=== PATIENT | female | born 1995 | race African-American/Black ===

== ENCOUNTER 2018-05-05 07:00 | Emergency (ER) | payer MEDICARE, OTHER ==
[~2018-05-05] VITALS: Ht 157.5 cm; Wt 83.0 kg
[2018-05-05 07:03] VITALS: BP 153/95; PULSE 108; RESP 16; Ht 157.5 cm; Wt 83.0 kg
--- NOTE | 2018-05-05 07:34 | ERD ---
ER Documentation Chief Complaint Chief Complaint back pain and dysuria x 1 week HPI Is a 23-year-old female who presents to the emergency room with complaint of right-sided flank pain and dysuria increasing in severity times 1 week. Patient states that she has had multiple UTIs over the last year, has not had urology follow-up. Denies fevers,+frequency, + burning, occasional vaginal itching. Patient states she has been having unprotected sex and has concern for STD. Patient states she is currently on her period. Significant medical history for bipolar disorder, depression. Patient states she has recently moved to the area and this is her first visit at this facility. Patient states that she has pain but it is manageable and declines any analgesic at this time. ROS All systems reviewed and are negative except as per history of present illness. Medications Home Meds Active Scripts Cephalexin* (Keflex*) 500 Mg Capsule, 500 MG PO BID for 10 Days, #20 CAP Prov:DAVID BRUCE NP 05/05/18 Phenazopyridine Hcl* (Pyridium*) 200 Mg Tab, 200 MG PO TID PRN for URINARY PAIN, #6 TAB Prov:DAVID BRUCE NP 05/05/18 Allergies Allergies: Coded Allergies: No Known Allergy (Unverified , 05/05/18) PMhx/Soc Medical and Surgical Hx: pt denies Medical Hx FmHx Family History: No diabetes, No coronary disease, No other Physical Exam Vitals Vital Signs Date Temp Pulse Resp B/P (MAP) Pulse Ox O2 O2 Flow FiO2 Time Delivery Rate 05/05/18 97.8 108 16 153/95 97 07:03 (114) Physical Exam General: alert and oriented x4, no acute distress HEENT: normocephalic, atraumatic, PERRL, tympanic membranes normal, no nasal discharge, neck nontender, without lymphadenopathy, pharynx nonerythematous Cardiovascular: regular rate and rhythm, normal peripheral perfusion Respiratory: lungs clear to auscultation and percussion, without rales, without rhonchi, without wheezing, normal breath sounds, respirations non labored, normal air movement in lung gallegos Gastrointestinal: abdomen soft, non-distended, no tenderness to palpation in the suprapubic area, no guarding, no rebound, no CVT Psychiatric: demonstrates good judgment and reason and normal affect during examination Results 24 hrs Laboratory Tests Test 05/05/18 07:29 Urine Color YELLOW Urine Clarity CLOUDY Urine pH 6.0 Urine Specific [place] 1.010 Urine Ketones NEGATIVE mg/dL Urine Nitrite NEGATIVE mg/dL Urine Bilirubin NEGATIVE mg/dL Urine Urobilinogen NEGATIVE mg/dL Urine Leukocyte Esterase 3+ Jose Luis/ul Urine Microscopic RBC 111 /HPF Urine Microscopic WBC > 182 /HPF Urine Squamous Epithelial Cells FEW /HPF Urine Bacteria FEW /HPF Urine Yeast (Budding) FEW /HPF Urine Hemoglobin 3+ mg/dL Urine Glucose NEGATIVE mg/dL Urine Total Protein 2+ mg/dl Urine Test NEGATIVE Current Medications Medications Dose Sig/Dimitri Start Time Status Last (Trade) Ordered Route PRN Stop Time Admin Dose Reason Admin Ceftriaxone 250 mg ONCE ONCE 05/05/18 DC 05/05/18 Sodium IM 08:30 08:39 (Rocephin) 05/05/18 08:31 Lidocaine 5 ml ONCE ONCE 05/05/18 DC 05/05/18 (Xylocaine INJ 08:30 08:39 1% (Mpf)) 05/05/18 08:31 1,000 mg ONCE ONCE 05/05/18 DC 05/05/18 Azithromycin PO 08:30 08:39 (Zithromax) 05/05/18 08:31 Procedures/MDM This is a 23-year-old female who presents with dysuria and right sided flank pain. Diagnostic tests show positive for UTI. Due to patient's report of complicated and frequent UTIs, urine was sent for culture to ensure appropriate treatment. NAAT exam for chlamydia and gonorrhea will not be available for 3-5 days. Patient was treated empirically here in the ER and instructed that she will be notified if results of urine culture reveal need for alternative treatment. There is low suspicion for pyelonephritis, vaginitis, STI, or interstitial cystitis due to absence of clinical findings that would support a diagnosis more serious than uncomplicated UTI. These diagnoses have been considered and excluded clinically. Nonetheless, it is understood by both the patient and provider that no clinical or diagnostic assessment can entirely exclude such diseases. Patient has been instructed on signs and symptoms of concern or with evolving condition with strict instructions to return to ED for reevaluation. Departure Diagnosis: Primary Impression: Urinary tract infection Condition: Stable Patient Instructions: Urinary Tract Infections in Women Referrals: [facility] Additional Instructions: Thank you very much for allowing us to participate in your care. Your health and safety is our top priority at [facility]. Call your primary care doctor TOMORROW for an appointment during the next 2-4 days and bring all the information and medications prescribed. Have prescriptions filled and follow precisely the directions on the label. If the symptoms get worse and your provider is unavailable, return to the Emergency Department immediately. DAVID BRUCE NP May 05, 2018 07:34
[2018-05-05] MEDS ORDERED: PHEN-538 PO (07:35)
[2018-05-05] MEDS ORDERED: CEPH-443 PO (08:20)
[2018-05-05] MEDS ORDERED: CEFTRIAXONE 250 MG INJ IM ONE (08:30)
[2018-05-05] MEDS ORDERED: AZITHROMYCIN 250 MG TAB PO ONE (08:30)
[2018-05-05] MEDS ORDERED: LIDOCAINE 1% (MPF) 5 ML VIAL INJ ONE (08:30)
== END 2018-05-05 09:48 | disposition left against medical advice (07) ==
LOC: FTE 07:00
DX: N39.0 Urinary tract infection, site not specified (principal)
CPT/HCPCS: 81001; 84703; 87086; 87591; 96372; 99284; J0696

== ENCOUNTER 2018-05-06 15:26 | Emergency (ER) | payer MEDICARE, OTHER ==
[~2018-05-06] VITALS: Wt 74.0 kg
[~2018-05-06 15:26] MED LIST: CEPH-443 PO; PHEN-538 PO
[2018-05-06 15:29] VITALS: BP 140/91; PULSE 100; RESP 20
--- NOTE | 2018-05-06 20:49 | ERD ---
ER Documentation Chief Complaint Chief Complaint ABD PAIN WITH NAUSEA AND VOMITING AND VAGINAL BLEEDING SINCE 1 DAY HPI 23-year-old female patient with a past medical history of anemia presents to the ED stating that she was concerned for blood clots in her vaginal bleeding. Reports that she started her menstruation about 3 days ago. She has had to change a few pads per day. Patient was here yesterday for dysuria and got treated for STD concern. Reports that she has had 3 episodes of nonbilious nonbloody vomiting. States that now she has some lower pelvic stabbing pain. She has had a previous history of a right breast lumpectomy. Denies any diarrhea, constipation, fever, chills, chest pain, shortness of breath. ROS All systems reviewed and are negative except as per history of present illness. Medications Home Meds Active Scripts Cephalexin* (Keflex*) 500 Mg Capsule, 500 MG PO BID for 10 Days, #20 CAP Prov:DAVID BRUCE NP 05/05/18 Phenazopyridine Hcl* (Pyridium*) 200 Mg Tab, 200 MG PO TID PRN for URINARY PAIN, #6 TAB Prov:DAVID BRUCE NP 05/05/18 Allergies Allergies: Coded Allergies: No Known Allergy (Unverified , 05/05/18) FmHx Family History: No diabetes, No coronary disease Physical Exam Vitals Vital Signs Date Temp Pulse Resp B/P (MAP) Pulse Ox O2 O2 Flow FiO2 Time Delivery Rate 05/06/18 98.8 100 20 140/91 98 15:29 (107) Physical Exam Const: [id number], well-nourished. In no acute distress. Head: Atraumatic, normocephalic Eyes: Normal Conjunctiva without injection. No purulent discharge. ENT: Normal external ear, nose. Moist oropharynx without tonsillar exudates. Non-erythematous pharynx. Uvula midline. No drooling. No trismus. Neck: No cervical midline tenderness. Full range of motion. No meningismus. No cervical lymphadenopathy. No JVD. Resp: Clear to auscultation bilaterally. No wheezing, rhonchi, rales, or crackles. No accessory muscle use. No retractions. Cardio: Regular rate and rhythm. No murmurs, rubs or gallops. Abd: Soft, suprapubic tenderness, non distended. Normal bowel sounds. No palpable masses. No rebound tenderness. No guarding. Negative McBurney's point. Negative psoas sign. Negative obturator sign.: See exam in MDM. Skin: No petechiae or rashes Back: No midline tenderness. No CVA tenderness. Ext: No cyanosis, or edema. Neur: Awake and alert. Normal gait. Normal coordination. Psych: Normal Mood and Affect Results 24 hrs Laboratory Tests Test 05/06/18 16:31 05/06/18 16:47 POC Beta HCG, Qualitative NEGATIVE Urine Color STRAW Urine Clarity SLIGHTLY CLOUDY Urine pH 8.0 Urine Specific [place] 1.004 Urine Ketones NEGATIVE mg/dL Urine Nitrite NEGATIVE mg/dL Urine Bilirubin NEGATIVE mg/dL Urine Urobilinogen NEGATIVE mg/dL Urine Leukocyte Esterase 3+ Jose Luis/ul Urine Microscopic RBC 6 /HPF Urine Microscopic WBC 115 /HPF Urine Bacteria FEW /HPF Urine Hemoglobin 3+ mg/dL Urine Glucose NEGATIVE mg/dL Urine Total Protein NEGATIVE mg/dl Procedures/MDM 23-year-old female patient with a past medical history of anemia presents to the ED complaining of lower abdominal pain associated with nausea and vomiting as well as vaginal bleeding that started earlier today - likely patient's menstruation. Patient is afebrile and nontoxic-appearing. Patient's blood pressure is 140/91. Blood Pressure Assessment: Patient's blood pressure was elevated (>120/80) but appears stable without evidence of hypertension emergency or urgency. The patient was counseled about the risks of hypertension and urged to pursue outpatient monitoring and therapy within a week with their primary care physician. Patient eloped prior to receiving ultrasound as well as blood work. Patient was called several times by our staff to obtain blood work as well as ultrasound. Low suspicion for ectopic , ovarian torsion, gastritis, GERD, peptic ulcer disease, cholecystitis, choledocholithiasis, cholangitis, pancreatitis, appendicitis, bowel obstruction, ileus, volvulus, nephrolithiasis, pyelonephritis, hepatitis, perforated viscus, diverticulitis, strangulated/incarcerated hernia, DKA, acute abdomen, mesenteric ischemia or other emergent conditions. Departure Diagnosis: Primary Impression: Vaginal bleeding Condition: Stable JOSE LOGAN PA-C May 06, 2018 20:49
== END 2018-05-06 20:13 | disposition left against medical advice (07) ==
LOC: FTE 15:26
DX: N93.9 Abnormal uterine and vaginal bleeding, unspecified (principal); R10.2 Pelvic and perineal pain
CPT/HCPCS: 81001; 81025; 99283

== ENCOUNTER 2018-05-09 08:34 | Emergency (ER) | payer MEDICARE, OTHER ==
[~2018-05-09] VITALS: Wt 90.0 kg
[2018-05-09 08:40] VITALS: BP 130/78; PULSE 99; RESP 18
[2018-05-09] MEDS ORDERED: NORE1TAB12 PO (11:03)
--- NOTE | 2018-05-09 12:51 | ERD ---
ER Documentation Chief Complaint Chief Complaint VAGINAL BLEEDING, LMP 45 DAYS AGO HPI 23-year-old female presenting with vaginal bleeding. She states that she has not had a period 45 days and does not know she is . She has been passing clots. She states is been going on for the last 3 days. She is unsure if she is . A0. Denies medical problems. NKDA. Surgical history left breast mass removal. Cryotherapy on cervix. ROS All systems reviewed and are negative except as per history of present illness. Medications Home Meds Active Scripts Noreth A-Et Estra/Fe Fumarate (LO LOESTRIN FE 1-10 TABLET) 1 Each Tablet, 1 EACH PO DAILY, #28 TAB Prov:ELENA GOMEZ PA-C 05/09/18 Cephalexin* (Keflex*) 500 Mg Capsule, 500 MG PO BID for 10 Days, #20 CAP Prov:DAVID BRUCE NP 05/05/18 Phenazopyridine Hcl* (Pyridium*) 200 Mg Tab, 200 MG PO TID PRN for URINARY PAIN, #6 TAB Prov:DAVID BRUCE NP 05/05/18 Allergies Allergies: Coded Allergies: No Known Allergy (Unverified , 05/05/18) PMhx/Soc History of Surgery: Yes (cervix frozen,left breast tumor removed) Anesthesia Reaction: No Hx Miscellaneous Medical Probl: Yes (Anemia) Hx Alcohol Use: Yes (beer a day) Hx Substance Use: Yes (marijuana,meth,cocaine,amphetamine a day ago) Hx Tobacco Use: Yes Smoking Status: Current every day smoker FmHx Family History: No diabetes, No coronary disease, No other Physical Exam Vitals Vital Signs Date Temp Pulse Resp B/P (MAP) Pulse Ox O2 O2 Flow FiO2 Time Delivery Rate 05/09/18 98.1 99 18 130/78 99 08:40 (95) Physical Exam GENERAL: The patient is well-appearing, well-nourished, in no acute distress CHEST: Clear to auscultation bilaterally. There are no rales, wheezes or rhonchi. HEART: Regular rate and rhythm. No murmurs, clicks, rubs or gallops. ABDOMEN:Soft, nontender and nondistended. Good bowel sounds. No rebound or guarding. No gross peritonitis. No gross organomegaly or masses. Result Diagram: 05/09/1890305/09/1804 Results 24 hrs Laboratory Tests Test 05/09/18 09:04 05/09/18 10:36 05/09/18 10:40 White Blood Count 8.2 10^3/ul Red Blood Count 4.61 10^6/ul Hemoglobin 12.1 g/dl Hematocrit 38.1 % Mean Corpuscular Volume 82.6 fl Mean Corpuscular Hemoglobin 26.2 pg Mean Corpuscular 31.8 g/dl Hemoglobin Concent Red Cell Distribution Width 17.1 % Platelet Count 353 10^3/UL Mean Platelet Volume 10.0 fl Immature Granulocytes % 0.200 % Neutrophils % 53.2 % Lymphocytes % 38.7 % Monocytes % 6.9 % Eosinophils % 0.5 % Basophils % 0.5 % Nucleated Red Blood Cells % 0.0 /100WBC Immature Granulocytes # 0.020 10^3/ul Neutrophils # 4.3 10^3/ul Lymphocytes # 3.2 10^3/ul Monocytes # 0.6 10^3/ul Eosinophils # 0.0 10^3/ul Basophils # 0.0 10^3/ul Nucleated Red Blood Cells # 0.0 10^3/ul Sodium Level 141 mmol/L Potassium Level 3.7 mmol/L Chloride Level 105 mmol/L Carbon Dioxide Level 27 mmol/L Anion Gap 9 Blood Urea Nitrogen 10 mg/dl Creatinine 0.78 mg/dl Est Glomerular Filtrat > 60 mL/min Rate mL/min Glucose Level 95 mg/dl Calcium Level 9.6 mg/dl Total Bilirubin 0.1 mg/dl Direct Bilirubin 0.00 mg/dl Indirect Bilirubin 0.1 mg/dl Aspartate Amino 35 IU/L Transf (AST/SGOT) Alanine 36 IU/L Aminotransferase (ALT/SGPT) Alkaline Phosphatase 111 IU/L Total Protein 8.3 g/dl Albumin 4.5 g/dl Globulin 3.80 g/dl Albumin/Globulin Ratio 1.18 Beta HCG, Quantitative < 2.4 mIU/ml Urine Color STRAW Urine Clarity CLEAR Urine pH 7.0 Urine Specific [place] 1.003 Urine Ketones NEGATIVE mg/dL Urine Nitrite NEGATIVE mg/dL Urine Bilirubin NEGATIVE mg/dL Urine Urobilinogen NEGATIVE mg/dL Urine Leukocyte Esterase NEGATIVE Jose Luis/ul Urine Microscopic RBC 11 /HPF Urine Microscopic WBC 7 /HPF Urine Squamous Epithelial Cells FEW /HPF Urine Hemoglobin 3+ mg/dL Urine Glucose NEGATIVE mg/dL Urine Total Protein NEGATIVE mg/dl Bedside Urine pH (LAB) 7.0 Bedside Urine Protein (LAB) Negative Bedside Urine Glucose (UA) Negative Bedside Urine Ketones (LAB) Negative Bedside Urine Blood 3+ Bedside Urine Nitrite (LAB) Negative Bedside Urine Leukocyte Esterase Trace (L Procedures/MDM DIAGNOSTIC IMAGING REPORT Patient: DANIELLE YEPEZ : 1995 Age: 23 Sex: F MR #: [id number] DOS: 05/09/18 0855 Ordering MD: ERI GOMEZ PA-C Location: [facility] Room/Bed: PROCEDURE: US Pelvis. CLINICAL INDICATION: vaginal bleeding TECHNIQUE: Multiple sonographic images of the pelvis were obtained utilizing a transabdominal and endovaginal technique. The images were reviewed on a PACS workstation. COMPARISON: None. FINDINGS: The uterus is normal in size and demonstrates a normal appearance of the myometrium. The uterus measures 6.9 x 3.0 x 3.7 cm in size. The endometrial stripe is homogeneous in appearance and has the thickness of 6 mm. No intrauterine gestation is noted. The ovaries are normal in size and echogenicity. Normal Doppler flow is identified in both ovaries. The right ovary measures 3.9 x 2.0 x 3.4 cm. The left ovary measures 3.8 x 2.1 x 2.6 cm. No free fluid is present within the pelvis.. RPTAT: AA IMPRESSION: No intrauterine gestation visualized. Differential diagnosis includes early , missed or ectopic . Follow-up ultrasound and HCG levels is recommended. MDM: 23-year-old female presenting with vaginal bleeding. Patient's hemoglobin is stable and I do not have concerns for anemia at this time. Patient's beta quant levels are less than 2.4. A low suspicion for pelvic emergency. I have low suspicion for other acute abdominal emergencies as patient's abdominal exam is non-concerning. Patient's vitals are stable. I have low suspicion for urinary tract infection. Patient urinalysis within normal limits. Patient is told if symptoms change or worsen to follow-up with primary care. She is discharged with strict ER precautions. All questions answered at discharge Departure Diagnosis: Primary Impression: Vaginal bleeding Condition: Stable Patient Instructions: Menorrhagia Referrals: [facility] YOU HAVE RECEIVED A MEDICAL SCREENING EXAM AND THE RESULTS INDICATE THAT YOU DO NOT HAVE A CONDITION THAT REQUIRES URGENT TREATMENT IN THE EMERGENCY DEPARTMENT. FURTHER EVALUATION AND TREATMENT OF YOUR CONDITION CAN WAIT UNTIL YOU ARE SEEN IN YOUR DOCTORS OFFICE WITHIN THE NEXT 1-2 DAYS. IT IS YOUR RESPONSIBILITY TO MAKE AN APPOINTMENT FOR FOLOW-UP CARE. IF YOU HAVE A PRIMARY DOCTOR --you should call your primary doctor and schedule an appointment IF YOU DO NOT HAVE A PRIMARY DOCTOR YOU CAN CALL OUR PHYSICIAN REFERRAL HOTLINE AT IF YOU CAN NOT AFFORD TO SEE A PHYSICIAN YOU CAN CHOSE FROM THE FOLLOWING [facility] [address] [place] [address] [facility] [facility] [address] [facility] [address] [facility]. [facility] [address] [facility]. [facility]. [address] Additional Instructions: FOLLOW UP WITH YOUR PRIMARY CARE PHYSICIAN TOMORROW.Return to this facility if you are not improving as expected. ELENA GOMEZ PA-C May 09, 2018 12:51
== END 2018-05-09 11:21 | disposition home or self-care (01) ==
LOC: FTE 08:34
DX: N93.9 Abnormal uterine and vaginal bleeding, unspecified (principal); F17.210 Nicotine dependence, cigarettes, uncomplicated; R10.2 Pelvic and perineal pain; Z32.02 Encounter for pregnancy test, result negative
CPT/HCPCS: 36415; 76801; 76817; 80053; 81001; 81003; 84702; 85025; 86900; 86901

== ENCOUNTER 2018-05-27 14:57 | Emergency (ER) | payer MEDICARE, OTHER ==
[~2018-05-27 14:57] MED LIST changes: +NORE1TAB12 PO
== END 2018-05-27 16:09 | disposition left against medical advice (07) ==
LOC: E/R 14:57
DX: Z53.21 Procedure and treatment not carried out due to patient leaving prior to being seen by health care provider (principal)

== ENCOUNTER 2018-07-01 04:08 | Emergency (ER) | payer MEDICARE, OTHER ==
[~2018-07-01] VITALS: Ht 157.5 cm; Wt 81.6 kg
[2018-07-01 04:11] VITALS: Ht 157.5 cm; Wt 81.6 kg
[2018-07-01] MEDS ORDERED: VENL225T PO (04:39)
[2018-07-01] MEDS ORDERED: ARIP400S IM (04:39)
[2018-07-01] MEDS ORDERED: OXCA300T3 PO (04:39)
--- NOTE | 2018-07-01 04:43 | ERD ---
ER Documentation Chief Complaint Chief Complaint states needs medication refill for psyche meds HPI 23-year-old female presents for medication refills. She currently takes 3 different psych medications for her bipolar disorder. She states that she just moved to the city and has not had a psychiatry follow-up. She currently takes Abilify 400 mg monthly IM, Trileptal 300 mg twice daily, venlafaxine 225 daily. She is been taking the IM Abilify for about 4 years. She currently denies any suicidal or homicidal ideation. She denies any hallucinations currently. No o ther modifying factors noted, no treatments tried at home. ROS All systems reviewed and are negative except as per history of present illness. Medications Home Meds Active Scripts Venlafaxine Hcl* (Venlafaxine Hcl ER*) 225 Mg Tab.er.24, 225 MG PO DAILY for depression, #30 TAB.SA Prov:SHWETA QUINTANILLA DO 07/01/18 Oxcarbazepine* (Trileptal*) 300 Mg Tablet, 300 MG PO BID for bipolar, #60 TAB Prov:SHWETA QUINTANILLA DO 07/01/18 Aripiprazole* (Abilify* Maintena) 400 Mg Suser.vial, 400 MG IM Q28D for bipolar disorder, #1 VIAL Prov:SHWETA QUINTANILLA DO 07/01/18 Noreth A-Et Estra/Fe Fumarate (LO LOESTRIN FE 1-10 TABLET) 1 Each Tablet, 1 EACH PO DAILY, #28 TAB Prov:ELENA GOMEZ PA-C 05/09/18 Cephalexin* (Keflex*) 500 Mg Capsule, 500 MG PO BID for 10 Days, #20 CAP Prov:DAVID BRUCE NP 05/05/18 Phenazopyridine Hcl* (Pyridium*) 200 Mg Tab, 200 MG PO TID PRN for URINARY PAIN, #6 TAB Prov:DAVID BRUCE NP 05/05/18 Allergies Allergies: Coded Allergies: No Known Allergy (Unverified , 05/05/18) PMhx/Soc History of Surgery: Yes (cervix frozen,left breast tumor removed) Anesthesia Reaction: No Hx Psychiatric Problems: Yes (DEPRESSION) Hx Miscellaneous Medical Probl: Yes (Anemia) Hx Alcohol Use: Yes (beer a day) Hx Substance Use: Yes (marijuana,meth,cocaine,amphetamine a day ago) Hx Tobacco Use: Yes Smoking Status: Current every day smoker FmHx Family History: No coronary disease Physical Exam Vitals Vital Signs Date Temp Pulse Resp B/P (MAP) Pulse Ox O2 O2 Flow FiO2 Time Delivery Rate 07/01/18 97.5 102 20 150/90 97 04:11 (110) Physical Exam Const: No acute distress Resp: Clear to auscultation bilaterally Cardio: Regular rate and rhythm, no murmurs Abd: Soft, non tender, non distended. Normal bowel sounds Skin: No petechiae or rashes Back: No midline or flank tenderness Ext: No cyanosis, or edema Neur: Awake and alert Psych: Normal Mood and Affect, denies SI or HI Procedures/MDM Medical Decision Making: Patient presents for refills on her psych medications. She states that she recently moved into the city and does not have psych follow-up. Patient appeared well on physical exam. Patient was able to produce documentation that she is on her psych meds. Patient given refills. Patient advised to follow up with PCP in 1-2 days. Patient advised to return to ED for new or worsening symptoms. Patient stable on discharge from the ED. Disclaimer: Inadvertent spelling and grammatical errors are likely due to EHR/dictation software use and do not reflect on the overall quality of patient care. Also, please note that the electronic time recorded on this note does not necessarily reflect the actual time of the patient encounter. Departure Diagnosis: Primary Impression: Encounter for medication refill Condition: Fair Patient Instructions: Taking Medicine Safely Referrals: [facility] YOU HAVE RECEIVED A MEDICAL SCREENING EXAM AND THE RESULTS INDICATE THAT YOU DO NOT HAVE A CONDITION THAT REQUIRES URGENT TREATMENT IN THE EMERGENCY DEPARTMENT. FURTHER EVALUATION AND TREATMENT OF YOUR CONDITION CAN WAIT UNTIL YOU ARE SEEN IN YOUR DOCTORS OFFICE WITHIN THE NEXT 1-2 DAYS. IT IS YOUR RESPONSIBILITY TO MAKE AN APPOINTMENT FOR FOLOW-UP CARE. IF YOU HAVE A PRIMARY DOCTOR --you should call your primary doctor and schedule an appointment IF YOU DO NOT HAVE A PRIMARY DOCTOR YOU CAN CALL OUR PHYSICIAN REFERRAL HOTLINE AT IF YOU CAN NOT AFFORD TO SEE A PHYSICIAN YOU CAN CHOSE FROM THE FOLLOWING [facility] [address] [facility]. [facility] [address] [facility] [facility] [address] [facility] [facility] [address] [facility] [address] [facility]. [facility] [address] Additional Instructions: Call your primary care doctor TOMORROW for an appointment during the next 1-2 days.See the doctor sooner or return here if your condition worsens before your appointment time. SHWETA QUINTANILLA DO July 01, 2018 04:43
[2018-07-01 04:56] VITALS: BP 135/72; PULSE 98; RESP 16
== END 2018-07-01 04:53 | disposition home or self-care (01) ==
LOC: FTE 04:08
DX: Z76.0 Encounter for issue of repeat prescription (principal); F17.210 Nicotine dependence, cigarettes, uncomplicated
CPT/HCPCS: 99281

== ENCOUNTER 2018-08-02 17:18 | Emergency (ER) | payer MEDICARE, OTHER ==
[~2018-08-02] VITALS: Ht 162.6 cm; Wt 79.8 kg
[~2018-08-02 17:18] MED LIST changes: +ARIP400S IM; +OXCA300T3 PO; +VENL225T PO
[2018-08-02 17:47] VITALS: BP 121/95; PULSE 128; RESP 18; Ht 162.6 cm; Wt 79.8 kg
== END 2018-08-02 18:30 | disposition left against medical advice (07) ==
LOC: FTE 17:18
DX: Z53.21 Procedure and treatment not carried out due to patient leaving prior to being seen by health care provider (principal)

== ENCOUNTER 2018-08-11 06:34 | Emergency (ER) | payer OTHER ==
[~2018-08-11] VITALS: Ht 160 cm; Wt 82.7 kg
[2018-08-11 06:35] VITALS: BP 143/108; PULSE 119; RESP 19; Ht 160 cm; Wt 82.7 kg
[2018-08-11] MEDS ORDERED: EMTR1TAB11 PO (07:23)
[2018-08-11] MEDS ORDERED: MUPI22OI2 TOP (07:23)
--- NOTE | 2018-08-11 07:27 | ERD ---
ER Documentation Chief Complaint Chief Complaint foot pain/wound x 3 weeks HPI 23-year-old female presents the emergency department complaining of foot pain. Patient has an underlying history of psychiatric disease, but is able to provide history. She states that over the last 3 weeks, the bottom of her feet has hu rt. She reports no acute trauma. She reports no numbness, tingling, loss of function. She reports no fevers or chills. She is also requesting postexposure prophylaxis for HIV. She reports being tested for HIV 6 months ago which was negative, but she reports high risk behavior including IV drug abuse and sexual activity. She reports no acute fevers or chills. ROS All systems reviewed and are negative except as per history of present illness. Medications Home Meds Active Scripts Emtricitabine-Tenofovir* (Truvada*) 200-300 Mg Tablet, 1 TAB PO DAILY for 7 Days, TAB Prov:ANTONIO SHAH 08/11/18 Mupirocin* (Bactroban*) 2% -22 Gram Oint...g., 1 APPLIC TOP BID for 7 Days, EA Prov:ANTONIO SHAH 08/11/18 Venlafaxine Hcl* (Venlafaxine Hcl ER*) 225 Mg Tab.er.24, 225 MG PO DAILY for depression, #30 TAB.SA Prov:SHWETA QUINTANILLA DO 07/01/18 Oxcarbazepine* (Trileptal*) 300 Mg Tablet, 300 MG PO BID for bipolar, #60 TAB Prov:SHWETA QUINTANILLA DO 07/01/18 Aripiprazole* (Abilify* Maintena) 400 Mg Suser.vial, 400 MG IM Q28D for bipolar disorder, #1 VIAL Prov:SHWETA QUINTANILLA DO 07/01/18 Noreth A-Et Estra/Fe Fumarate (LO LOESTRIN FE 1-10 TABLET) 1 Each Tablet, 1 EACH PO DAILY, #28 TAB Prov:ELENA GOMEZ PA-C 05/09/18 Cephalexin* (Keflex*) 500 Mg Capsule, 500 MG PO BID for 10 Days, #20 CAP Prov:DAVID BRUCE NP 05/05/18 Phenazopyridine Hcl* (Pyridium*) 200 Mg Tab, 200 MG PO TID PRN for URINARY PAIN, #6 TAB Prov:DAVID BRUCE NP 05/05/18 Allergies Allergies: Coded Allergies: No Known Allergy (Unverified , 05/05/18) PMhx/Soc History of Surgery: Yes (cervix frozen,left breast tumor removed) Anesthesia Reaction: No Hx Psychiatric Problems: Yes (DEPRESSION) Hx Miscellaneous Medical Probl: Yes (Anemia) Hx Alcohol Use: Yes (beer a day) Hx Substance Use: Yes Hx Tobacco Use: Yes Smoking Status: Former smoker Physical Exam Vitals Vital Signs Date Temp Pulse Resp B/P (MAP) Pulse Ox O2 O2 Flow FiO2 Time Delivery Rate 08/11/18 98.3 119 19 143/108 97 06:35 (120) Physical Exam GENERAL: The patient is well developed and appropriate for usual state of health in no apparent distress HEENT: Pupils equal, round, and reactive to light. EOMI. There is no scleral icterus. NECK: C-spine is soft and supple, there is no meningismus. There is no cervical lymphadenopathy. LUNGS: Clear to auscultation bilaterally. There are no rales, wheezes or rhonchi. HEART: Regular rate and rhythm, no murmurs, clicks, rubs or gallops. ABDOMEN: Soft, non-tender, non-distended. There are bowel sounds in all four quadrants. No rebound or guarding. EXTREMITIES: There is no peripheral cyanosis or edema. No focal swelling or erythema. NEURO: The patient moves all four extremities with 5/5 strength. Cranial nerves II - XII are intact. Normal gait. Alert and oriented SKIN: The bottom of the feet has poor hygiene with multiple blisters. No evidence of cellulitis. No evidence of abscess. HEME/LYMPHATIC: There is no evidence of excessive bruising or lymphedema. PSYCHIATRIC: Awake, alert, oriented able to provide history. She denies suicidal or homicidal thoughts. She denies auditory visual hallucinations. Procedures/MDM Patient was taken to a room, seen and examined Medical decision makin-year-old female with an underlying history of psychiatric disease presents the emergency room with what appears to be flavio santiago. Patient has poor hygiene, but no evidence of significant infection. After consultation with the patient, patient will be placed on topical antibiotic cream. She is also requesting postexposure prophylaxis. Patient is high risk with multiple risk factors, and previously HIV negative. She has no symptoms of acute HIV disease. Departure Diagnosis: Primary Impression: Foot pain Condition: Stable Patient Instructions: Blister Referrals: COUNTS INCLUDE 234 BEDS AT THE [facility] YOU HAVE RECEIVED A MEDICAL SCREENING EXAM AND THE RESULTS INDICATE THAT YOU DO NOT HAVE A CONDITION THAT REQUIRES URGENT TREATMENT IN THE EMERGENCY DEPARTMENT. FURTHER EVALUATION AND TREATMENT OF YOUR CONDITION CAN WAIT UNTIL YOU ARE SEEN IN YOUR DOCTORS OFFICE WITHIN THE NEXT 1-2 DAYS. IT IS YOUR RESPONSIBILITY TO MAKE AN APPOINTMENT FOR FOLOW-UP CARE. IF YOU HAVE A PRIMARY DOCTOR --you should call your primary doctor and schedule an appointment IF YOU DO NOT HAVE A PRIMARY DOCTOR YOU CAN CALL OUR PHYSICIAN REFERRAL HOTLINE AT IF YOU CAN NOT AFFORD TO SEE A PHYSICIAN YOU CAN CHOSE FROM THE FOLLOWING COUNTS INCLUDE 234 BEDS AT THE [facility] [address] [facility] [address] [facility] [facility] [address] [facility] [address] [facility]. [facility] [address] [facility] [facility]. [address] ANTONIO CALLES Aug 11, 2018 07:27
== END 2018-08-11 07:47 | disposition home or self-care (01) ==
LOC: FTE 06:34
DX: S90.829A Blister (nonthermal), unspecified foot, initial encounter (principal); X58.XXXA Exposure to other specified factors, initial encounter; Y92.9 Unspecified place or not applicable; Z87.891 Personal history of nicotine dependence
CPT/HCPCS: 99283

== ENCOUNTER 2018-09-30 06:45 | Emergency (ER) | payer OTHER ==
[~2018-09-30] VITALS: Ht 162.6 cm; Wt 82.6 kg
[~2018-09-30 06:45] MED LIST changes: +EMTR1TAB11 PO; +HYDR-4011 PO; +MUPI22OI2 TOP; +NAPR-985 PO; +TAMS-14 PO
[2018-09-30 06:50] VITALS: Ht 162.6 cm; Wt 82.6 kg
[2018-09-30] MEDS ORDERED: LIDOCAINE 1% (MPF) 5 ML VIAL INJ ONE (08:00)
[2018-09-30] MEDS ORDERED: AZITHROMYCIN 500 MG TAB PO ONE (08:00)
[2018-09-30] MEDS ORDERED: CEFTRIAXONE 250 MG INJ IM ONE (08:00)
[2018-09-30 08:34] VITALS: BP 132/81; PULSE 91; RESP 20
== END 2018-09-30 08:37 | disposition home or self-care (01) ==
LOC: FTE 06:45
DX: N89.8 Other specified noninflammatory disorders of vagina (principal); F17.210 Nicotine dependence, cigarettes, uncomplicated; Z72.51 High risk heterosexual behavior; Z85.89 Personal history of malignant neoplasm of other organs and systems
CPT/HCPCS: 81003; 81025; 87210; 87591; J0696; 96372

== ENCOUNTER 2018-10-26 09:20 | Emergency (ER) | payer OTHER ==
[~2018-10-26] VITALS: Wt 80.0 kg
[~2018-10-26 09:20] MED LIST changes: +BUTA1CAP38 PO; +IBUP-1542 PO; +ONDA8TAB14 PO
[2018-10-26 09:23] VITALS: BP 126/76; PULSE 99; RESP 18
[2018-10-26] MEDS ORDERED: ONDANSETRON (ODT) 4 MG TAB ODT STA (10:29)
[2018-10-26] MEDS ORDERED: HYDROCODONE/APAP (5/325) TAB PO ONE (10:30)
== END 2018-10-26 12:08 | disposition left against medical advice (07) ==
LOC: FTE 09:20
DX: N20.0 Calculus of kidney (principal); F17.210 Nicotine dependence, cigarettes, uncomplicated; R10.2 Pelvic and perineal pain
CPT/HCPCS: 36415; 74176; 76830; 76856; 80053; 81001; 81025; 83690; 84702; 85025; 86900; 86901